=== PATIENT | male | born 1955 | race Caucasian/White ===

== ENCOUNTER 2018-05-31 09:53 | Emergency (ER) | payer BC ==
[~2018-05-31] VITALS: Ht 177.8 cm; Wt 106.6 kg
[2018-05-31 12:46] VITALS: BP 134/79
== END 2018-05-31 12:46 | disposition home or self-care (01) ==
LOC: ED 09:53
DX: S01.112A Laceration without foreign body of left eyelid and periocular area, initial encounter (principal); W01.0XXA Fall on same level from slipping, tripping and stumbling without subsequent striking against object, initial encounter; Y93.89 Activity, other specified; Y92.89 Other specified places as the place of occurrence of the external cause; Y99.8 Other external cause status
CPT/HCPCS: 90715; J2001

== ENCOUNTER 2018-06-06 12:05 | Emergency (ER) | payer BC ==
[~2018-06-06] VITALS: Ht 177.8 cm; Wt 107.0 kg
[2018-06-06 12:17] VITALS: Ht 177.8 cm; Wt 107.0 kg
[2018-06-06 12:56] VITALS: BP 120/79
== END 2018-06-06 12:56 | disposition home or self-care (01) ==
LOC: ED 12:05
DX: S01.81XD Laceration without foreign body of other part of head, subsequent encounter (principal); W01.198D Fall on same level from slipping, tripping and stumbling with subsequent striking against other object, subsequent encounter; F17.210 Nicotine dependence, cigarettes, uncomplicated; Z71.6 Tobacco abuse counseling
CPT/HCPCS: 99406